=== PATIENT | female | born 1955 | race Caucasian/White ===

== ENCOUNTER 2018-07-28 11:45 | Inpatient (IN) | payer SELFPAY ==
[2018-07-28] MEDS ORDERED: IPRATROPIUM/ALBUTEROL 3 ML VIAL NEB ONE ×2 (12:08→16:04)
[2018-07-28] MEDS ORDERED: methylPREDNISolone SODIUM SUC 125 MG/2 ML VIAL IV ONE (12:09)
--- NOTE | 2018-07-28 12:14 | ED.PDOC ---
History of Present Illness - General Chief Complaint: Respiratory Problem Stated Complaint: shortness of breath Time Seen by Provider: 07/28/18 11:58 Source: patient Exam Limitations: no limitations - History of Present Illness Initial Comments: Patient presents with a fever and dyspnea for three days. She said she measured her temperature at home at 102 yesterday. The dyspnea has been getting progressively worse. She has mild intermittent asthma diagnosed three years ago. She normally uses her MDI less than once per week but has been using it "a lot" in the past three days. She also has a cough productive of green sputum. She has chest pain only when coughing that is generalized and burning. She smokes 1 ppd for 47 years. ( 47 pack year hx). No other complaints. She denies ever having been hospitalized for asthma. She was at the clinic today and noticed to have a fever and hypoxia from 85-88% so she was sent here. Timing/Duration: other - 3 days Severity: moderate Improving Factors: nothing Worsening Factors: nothing Associated Symptoms: other - see HPI Allergies/Adverse Reactions: Allergies Penicillins Allergy (Verified 07/28/18 11:53) Home Medications: Ambulatory Orders Albuterol Sulfate Nebs [Proventil Nebs] 2.5 mg INH QID PRN 07/28/18 Chlorthalidone 25 mg PO DAILY 07/28/18 Fluticasone Furoate-Vilanterol [Breo Ellipta 200-25 Mcg/INH] 1 inh IN DAILY 07/28/18 Fluticasone Furoate-Vilanterol [Breo Ellipta 200-25 Mcg/INH] 1 puff INH DAILY 07/28/18 Lisinopril 40 mg PO DAILY 07/28/18 Review of Systems - Review of Systems Constitutional: States: see HPI EENTM: States: no symptoms reported Respiratory: States: see HPI Cardiology: States: no symptoms reported Gastrointestinal/Abdominal: States: no symptoms reported Genitourinary: States: no symptoms reported Musculoskeletal: States: no symptoms reported Skin: States: no symptoms reported Neurological: States: no symptoms reported Endocrine: States: no symptoms reported Hematologic/Lymphatic: States: no symptoms reported Past Medical History (General) - Patient Medical History Hx Asthma: Yes Hx of COPD: No Hx Cardiac Disorders: No Hx Congestive Heart Failure: No Hx Hypertension: Yes Surgical History: other - Vaccination History Hx Influenza Vaccination: No Hx Pneumococcal Vaccination: No - Social History Hx Tobacco Use: Yes Family Medical History - Family History Mother Hx Cardiac Disease: Yes Physical Exam - Physical Exam General Appearance: Alert Eye Exam: bilateral normal Ears, Nose, Throat: normal ENT inspection Neck: non-tender, full range of motion, supple Respiratory: wheezing - diffuse expiratory wheezing, crackles in righ lung pool Cardiovascular/Chest: normal peripheral pulses, regular rate, rhythm, no edema Gastrointestinal/Abdominal: normal bowel sounds, non tender, soft Back Exam: normal inspection, no CVA tenderness Extremity: normal range of motion, non-tender, normal inspection Neurologic: no motor/sensory deficits, alert, normal mood/affect, oriented x 3 Skin Exam: normal color Lymphatic: no adenopathy Progress - Progress Progress: 07/28/18 16:14 Laboratory Tests 07/28/18 07/28/18 07/28/18 12:06 12:06 12:07 WBC 10.6 RBC 4.19 L Hgb 13.6 Hct 39.7 MCV 94.8 MCH 32.4 H MCHC 34.4 RDW 15.8 H Plt Count 210 MPV 8.5 Absolute Neuts (auto) 8.50 H Absolute Lymphs (auto) 1.40 Absolute Monos (auto) 0.60 Absolute Eos (auto) 0.00 Absolute Basos (auto) 0.10 Neutrophils % 80.4 H Lymphocytes % 13.1 L Monocytes % 5.3 Eosinophils % 0.4 L Basophils % 0.8 PT INR PTT (SP) pCO2 pO2 HCO3 ABG pH ABG O2 Saturation ABG Base Excess ABG Deoxyhemoglobin Oxyhemoglobin % Carboxyhemoglobin % Methemoglobin % Sat Calc Total Hemoglobin Sodium 130 L Potassium 3.5 L Chloride 94 L Carbon Dioxide 23 Anion Gap 16.5 BUN 31 H Creatinine 2.31 H BUN/Creatinine Ratio 13.4 Random Glucose 96 Serum Osmolality 267.2 L Lactic Acid Calcium 8.3 L Magnesium 2.0 Total Bilirubin 0.8 AST 132 H ALT 103 H Alkaline Phosphatase 72 Creatine Kinase 3185 H* CK-MB (CK-2) 17.6 H* CK-MB (CK-2) % 0.55 Troponin I 0.06 H B-Natriuretic Peptide 59.1 Serum Total Protein 7.7 Albumin 3.6 Globulin 4.1 H Albumin/Globulin Ratio 0.9 L Group A Strep Rapid 07/28/18 07/28/18 07/28/18 12:07 12:45 12:55 WBC RBC Hgb Hct MCV MCH MCHC RDW Plt Count MPV Absolute Neuts (auto) Absolute Lymphs (auto) Absolute Monos (auto) Absolute Eos (auto) Absolute Basos (auto) Neutrophils % Lymphocytes % Monocytes % Eosinophils % Basophils % PT 11.0 H INR 1.10 PTT (SP) 37.3 H pCO2 pO2 HCO3 ABG pH ABG O2 Saturation ABG Base Excess ABG Deoxyhemoglobin Oxyhemoglobin % Carboxyhemoglobin % Methemoglobin % Sat Calc Total Hemoglobin Sodium Potassium Chloride Carbon Dioxide Anion Gap BUN Creatinine BUN/Creatinine Ratio Random Glucose Serum Osmolality Lactic Acid 0.9 Calcium Magnesium Total Bilirubin AST ALT Alkaline Phosphatase Creatine Kinase CK-MB (CK-2) CK-MB (CK-2) % Troponin I B-Natriuretic Peptide Serum Total Protein Albumin Globulin Albumin/Globulin Ratio Group A Strep Rapid Negative 07/28/18 07/28/18 14:53 15:34 WBC RBC Hgb Hct MCV MCH MCHC RDW Plt Count MPV Absolute Neuts (auto) Absolute Lymphs (auto) Absolute Monos (auto) Absolute Eos (auto) Absolute Basos (auto) Neutrophils % Lymphocytes % Monocytes % Eosinophils % Basophils % PT INR PTT (SP) pCO2 40 pO2 60 L HCO3 21.4 ABG pH 7.340 L ABG O2 Saturation 91.2 L ABG Base Excess -3.5 ABG Deoxyhemoglobin 8.6 H Oxyhemoglobin % 89.2 L Carboxyhemoglobin % 0.8 Methemoglobin % Sat 1.3 Calc Total Hemoglobin 12.7 Sodium Potassium Chloride Carbon Dioxide Anion Gap BUN Creatinine BUN/Creatinine Ratio Random Glucose Serum Osmolality Lactic Acid Calcium Magnesium Total Bilirubin AST ALT Alkaline Phosphatase Creatine Kinase CK-MB (CK-2) CK-MB (CK-2) % Troponin I 0.05 B-Natriuretic Peptide Serum Total Protein Albumin Globulin Albumin/Globulin Ratio Group A Strep Rapid Duonebs x two. Solumedrol 125 mg IV x one. EKG showed NSR with no ST changes nor T wave inversions. No LBBB. Initial troponin 0.06. Follo up troponin 3 hours later was 0.05. CXR showed probably bronchitis. Attempted to wean oxygen but the patient went down to 82% on room air. Was admitted for asthma exacerbation, lower respiratory infection, and hypoxia. Received azithromycin 500 mg IV x one in the E.D. The plan was discussed with the patient who voiced understanding with the plan and agreement with inpatient admission. 07/28/18 16:18 07/28/18 16:19 Departure - Departure Clinical Impression: Asthma with exacerbation, Lower respiratory infection, Hypoxia Disposition: Discharge to Home or Self Care Condition: Fair Departure Forms: ED Discharge - Pt. Copy, Patient Portal Self Enrollment Diet: other - as per hospitalist Activity: increase activity as tolerated Referrals: Shemar Gaviria MD [Primary Care Provider] - 1-2 Weeks Home Medications: Ambulatory Orders Albuterol Sulfate Nebs [Proventil Nebs] 2.5 mg INH QID PRN 07/28/18 Chlorthalidone 25 mg PO DAILY 07/28/18 Fluticasone Furoate-Vilanterol [Breo Ellipta 200-25 Mcg/INH] 1 inh IN DAILY 07/28/18 Fluticasone Furoate-Vilanterol [Breo Ellipta 200-25 Mcg/INH] 1 puff INH DAILY 07/28/18 Lisinopril 40 mg PO DAILY 07/28/18
--- NOTE | 2018-07-28 12:38 | RAD ---
EXAM DESCRIPTION: Chest x-ray,2 Views CLINICAL HISTORY: dyspnea, fever, hx of asthma COMPARISON: None FINDINGS: Cardiac silhouette is within normal limits. There is atherosclerosis There is no focal parenchymal or pleural disease. There is no acute osseous process visualized. Tubular opacities at the lower lungs could be secondary to bronchial wall thickening/bronchitis changes of unknown age. IMPRESSION: Tubular opacities at the lower lungs could be secondary to bronchial wall thickening/bronchitis changes of unknown age. Electronically signed by: Moose Yeager MD 07/28/2018 12:[address] [facility]
[2018-07-28] MEDS ORDERED: SODIUM CHLORIDE 0.9% 1000ML 1,000 ML IVS PRN (13:50)
[2018-07-28] MEDS ORDERED: AZITHROMYCIN IV 500 MG in SODIUM CHLORIDE 0.9% 250ML 250 ML IVPB ONE (13:57)
[2018-07-28] MEDS ORDERED: SODIUM CHLORIDE 0.9% 250ML 250 ML ONE (14:01)
[2018-07-28] MEDS ORDERED: AZITHROMYCIN IV 500 MG VIAL IVPB ONE (14:01)
--- NOTE | 2018-07-28 16:42 | HP ---
SUPERVISING PHYSICIAN: Harman Garcia M.D. CHIEF COMPLAINT: Shortness of breath. HISTORY OF PRESENT ILLNESS: This is a 63 year-old female who was being seen at [facility] Urgent Care by MELVIN Mcdaniel. She said that she was diagnosed with asthma several years ago and she did complain of an upper respiratory infection. She was sent to the Emergency Room due to her O2 sats being 85% on room air. They put her on oxygen and she came up to 90%. She was sent to the Emergency Room. Her initial vital signs showed temperature 97.7, heart rate 85, blood pressure 95/59, respiratory rate 24, O2 sat was 88% on room air. They put her on oxygen and she came up to 91%. Several times her heart rate actually went up into the 90s and she was given several breathing treatments as well as some IV steroids. Lab was done and her WBCs were 10.8 but she did have a left shift on her differential. Hemoglobin 13.6, hematocrit 39.7. PT was 11, PTT was 37.3. Chemistries showed sodium of 130 with potassium 3.5, chloride 94, carbon dioxide 23, BUN 31, creatinine 2.31. Serum osmolality was 267.2 with AST of 132 and ALT of 103. Creatinine kinase was 3,185 with CK-MB 17.6. Troponin initially was 0.06. A repeat troponin after fluids was 0.05. Group A Strep swab was negative. Blood gas showed pCO2 of 40 and pO2 of 60 with pH of 7.34 and O2 sat of 91.2%. Chest x-ray showed tubular opacities in the lower lungs to be secondary to bronchial wall thickening and bronchitis of unknown age. Vital signs stabilized out except for her oxygen saturations. They attempted to discontinue her oxygen and every time they did that her sats dropped into the mid to upper 80s. Due to her elevated creatinine kinase as well as her elevated kidney function and her hypoxia, I was called for hospital admission. PAST MEDICAL HISTORY: 1. Anxiety. 2. Hypertension. 3. Moderate asthma. 4. Osteoarthritis. PAST SURGICAL HISTORY: 1. Left knee surgery. 2. sections times 3. 3. Open reduction and internal fixation of the left femur. 4. Right hip replacement. OUTPATIENT MEDICATIONS: 1. Albuterol inhaler. 2. Breo ellipta. 3. Albuterol nebulizer solution. 4. Chlorthalidone. 5. Lisinopril. ALLERGIES: PENICILLIN. FAMILY HISTORY: Positive for diabetes and myocardial infarction. SOCIAL HISTORY: She lives in [place]. She is . She has 3 children. She currently smokes approximately 1 pack of cigarettes daily. She drinks alcohol infrequently and denies any illicit drug use. REVIEW OF SYSTEMS: GENERAL: Positive for subjective fever, malaise. Negative for weight changes. HEENT: Positive for sinus symptoms and nasal congestion. Negative for ear pain, vision changes or sore throat. RESPIRATORY: Positive for coughing, wheezing and shortness of breath. CARDIAC: Negative for chest pain, palpitations or tachycardia. GASTROINTESTINAL: Positive for nausea but negative for vomiting, diarrhea or constipation. GENITOURINARY: Negative for hematuria, dysuria or polyuria. SKIN: Negative for lesions or rashes. NEUROLOGIC: Negative for dizziness, headache or seizures. PHYSICAL EXAMINATION: VITAL SIGNS: Temperature 97.8, heart rate 82, blood pressure 134/79, respiratory rate 20, O2 sat is 92% on 2 liters nasal cannula. GENERAL: This is a 63 year-old female patient who is sitting up in her hospital bed. She is in moderate respiratory distress. HEENT: Normocephalic and atraumatic. Pupils are equal and reactive. Oropharynx is clear. NECK: Supple without mass. RESPIRATORY: Diminished at the bases with scattered rhonchi throughout all pool as well as expiratory wheezing noted through all pool. The patient is tachypneic and she can only respond in 2 to 3 word phrases due to her extreme shortness of breath. CHEST: There is equal rise and fall of the chest with inspiration and expiration. CARDIOVASCULAR: Regular rate and rhythm. GASTROINTESTINAL: Abdomen is soft, nondistended, non-tender. Bowel sounds are positive. EXTREMITIES: No clubbing, cyanosis or edema. NEUROLOGIC: She is awake, alert and oriented times three. Cranial nerves II- XII are grossly intact. SKIN: Warm and dry. LABORATORY: Labs and films are as per the History of Present Illness. ASSESSMENT: 1. Systemic inflammatory response syndrome secondary to bronchitis with a heart rate of 94, respiratory rate 24 and O2 saturation of 88% with an inability to wean off oxygen. 2. Moderate asthma exacerbation with hypoxia. Her pO2 on ABGs was 60. She is a chronic smoker. 3. Acute kidney injury with unknown creatinine level and no known history of any renal problems. Her creatinine is 2.31. 4. Mild electrolyte imbalance, mainly hyponatremia, hypokalemia, hypochloridemia most likely secondary to #1. 5. Tobacco abuse. 6. Elevated creatinine kinase of 3,185. 7. Hypertension. PLAN: We will admit the patient to the hospital. She will be continued on azithromycin and I have added Rocephin. She will also receive a taper of IV steroids. I have also done extensive asthma teaching. She will have scheduled and p.r.n. nebulizer. We have also discussed tobacco cessation. I will give her fluids overnight. Tomorrow I may need to change her IV fluids to include some Dextrose if her creatinine does not improve. I have restarted her home medications. She will be on a measurer machine. I have repeated her labs in the morning. Will continue to monitor closely and follow as needed. #[id number] [facility]
[2018-07-28] MEDS ORDERED: ACETAMINOPHEN 325 MG TAB PO PRN (17:17)
[2018-07-28] MEDS ORDERED: ALBUTEROL SULFATE 2.5 MG/3 ML VIAL NEB PRN (17:17)
[2018-07-28] MEDS ORDERED: KCL 20 MEQ/NS 1,000 ML IVS ONE (17:21)
[2018-07-28] MEDS: IV SET AND CAP CHANGE INJ INJ SCH (17:40)
[2018-07-28] MEDS ORDERED: IPRATROPIUM/ALBUTEROL 3 ML VIAL INH SCH (20:00)
[2018-07-28] MEDS ORDERED: MORPHINE SULFATE INJ 10 MG/ML VIAL IV PRN (20:01)
[2018-07-28] MEDS ORDERED: traMADol HCL 50 MG TAB PO PRN (20:20)
[2018-07-28] MEDS: ENOXAPARIN SODIUM 40 MG/0.4 ML SYG SUBCU SCH (20:31)
[2018-07-28] MEDS: BENZONATATE PERLES 100 MG CAP PO PRN (20:31)
[2018-07-28] MEDS ORDERED: SODIUM CHL 0.9% 50ML MIN-BAG+ 50 ML IVPB ONE (20:32)
[2018-07-28] MEDS ORDERED: cefTRIAXone SODIUM 1 GM VIAL ONE (20:32)
[2018-07-28] MEDS: cefTRIAXone SODIUM 1 GM in SODIUM CHL 0.9% 50ML MIN-BAG+ 50 ML IVPB SCH (20:33)
[2018-07-28] MEDS: methylPREDNISolone SODIUM SUC 125 MG/2 ML VIAL IV SCH (22:26)
[2018-07-28] MEDS: TEMAZEPAM 15 MG CAP PO PRN (22:32)
[2018-07-29] MEDS ORDERED: ONDANSETRON INJ 4 MG/2 ML VIAL IV PRN (06:19)
[2018-07-29] MEDS: methylPREDNISolone SODIUM SUC 125 MG/2 ML VIAL IV SCH (06:25)
[2018-07-29] MEDS: PANTOPRAZOLE SODIUM IV 40 MG VIAL IV SCH (06:28)
[2018-07-29] MEDS ORDERED: LISINOPRIL 10 MG TAB ONE (06:48)
[2018-07-29] MEDS: IPRATROPIUM/ALBUTEROL 3 ML VIAL NEB SCH ×4 (07:20→22:35)
[2018-07-29] MEDS: CHLORTHALIDONE 25 MG TAB PO SCH (08:02)
[2018-07-29] MEDS: LISINOPRIL 10 MG TAB PO SCH (08:02)
[2018-07-29] MEDS: NON-FORMULARY MEDICATION 1 EA MIS (Fluticasone Furoate-Vilanterol [Breo Ellipta 200-25 Mcg INH SCH (08:42)
[2018-07-29] MEDS ORDERED: PROMETHAZINE HCL INJ 25 MG in SODIUM CHLORIDE 0.9% 50ML 50 ML IVPB PRN (08:50)
[2018-07-29] MEDS ORDERED: SODIUM CHLORIDE 0.9% 50ML 50 ML ONE (09:07)
[2018-07-29] MEDS ORDERED: PROMETHAZINE HCL INJ 25 MG/ML VIAL ONE (09:07)
[2018-07-29] MEDS ORDERED: SODIUM BICARBONATE VIAL 75 MEQ in DEXTROSE 5% 1000ML 1,000 ML IVS ONE (10:29)
[2018-07-29] MEDS ORDERED: SODIUM BICARBONATE VIAL 50 MEQ/50 ML VIAL ONE (10:34)
[2018-07-29] MEDS ORDERED: DEXTROSE 5% 1000ML 1,000 ML IVS ONE (10:34)
[2018-07-29] MEDS ORDERED: SODIUM CHLORIDE 0.9% 250ML 250 ML ONE (11:46)
[2018-07-29] MEDS ORDERED: AZITHROMYCIN IV 500 MG VIAL IVPB ONE (11:46)
[2018-07-29] MEDS: methylPREDNISolone SODIUM SUC 40 MG/ML VIAL IV SCH ×2 (11:50→17:07)
[2018-07-29] MEDS: AZITHROMYCIN IV 500 MG in SODIUM CHLORIDE 0.9% 250ML 250 ML IVPB SCH (11:50)
--- NOTE | 2018-07-29 14:39 | PN ---
DATE: 07/29/18 SUPERVISING PHYSICIAN: Harman Garcia M.D. SUBJECTIVE: The patient is sitting on the side of the bed. She continues to complain of shortness of breath, wheezing and coughing. She has also had some nausea and vomiting early this morning. That has somewhat subsided. She still continues to feel very weak. She denies any chest pain, diarrhea or constipation. OBJECTIVE: VITAL SIGNS: Temperature 97.9, heart rate 65, blood pressure 124/72, respiratory rate 20, O2 sat 93% on 2.5 liters nasal cannula. She has been as low at 88%. RESPIRATORY: Expiratory wheezing in all lung pool. She is diminished at the bases. There are a few scattered rhonchi. She is tachypneic. She has to speak in 2 to 3 word phrases due to her dyspnea. CARDIAC: Regular rate and rhythm. ABDOMEN: Soft, nondistended. Diffusely but mildly tender. Bowel sounds are positive. NEUROLOGIC: She is awake, alert and oriented times three. LABORATORY: WBC 10 with left shift on differential. Hemoglobin 12.8, hematocrit 38.1. Sodium 130, potassium 4.3, carbon dioxide 99, BUN 25, creatinine has improved to 1.1 with glucose 159, serum osmolality 268.6, calcium 7.6. AST is slightly improved to 107, ALT improved to 82. Creatinine kinase 3,290. Throat culture is pending. All other labs and films have been reviewed via the EMR. ASSESSMENT: 1. Systemic inflammatory response syndrome secondary to bronchitis with a heart rate of 94, respiratory rate 24 and O2 saturation of 88% with an inability to wean off oxygen. 2. Moderate asthma exacerbation with hypoxia. Her pO2 on ABGs was 60. She is a chronic smoker. 3. Acute kidney injury with unknown baseline creatinine level and no known history of any renal problems. Her elevated creatinine may be due to her elevated creatinine kinase. Her creatinine on admission was 2.31, today it is 1.1. 4. Mild electrolyte imbalance, mainly hyponatremia, hypokalemia, hypochloridemia most likely secondary to #1. Her electrolytes have mostly normalized. 5. Tobacco abuse. 6. Elevated creatinine kinase of 3,185. 7. Hypertension. PLAN: We will continue present supportive care. Because her creatinine kinase is elevated I will give her some D5W with 1.5 amps of bicarb. I have titrated her IV steroids. We have again discussed at length about smoking cessation and we have encouraged her to do so. I have also ordered some Phenergan for her nausea and vomiting. Repeated her labs in the morning. We will continue to monitor closely and follow as needed. Dr. Garcia is the collaborating physician available for consultation. #[id number] [facility]
[2018-07-29] MEDS ORDERED: cefTRIAXone SODIUM 1 GM VIAL ONE (19:13)
[2018-07-29] MEDS ORDERED: SODIUM CHL 0.9% 50ML MIN-BAG+ 50 ML IVPB ONE (19:13)
[2018-07-29] MEDS: cefTRIAXone SODIUM 1 GM in SODIUM CHL 0.9% 50ML MIN-BAG+ 50 ML IVPB SCH (20:56)
[2018-07-29] MEDS: ENOXAPARIN SODIUM 40 MG/0.4 ML SYG SUBCU SCH (20:58)
[2018-07-30] MEDS: TEMAZEPAM 15 MG CAP PO PRN (00:05)
[2018-07-30] MEDS: ALPRAZolam 0.25 MG TAB PO PRN (00:05)
[2018-07-30] MEDS: methylPREDNISolone SODIUM SUC 40 MG/ML VIAL IV SCH ×5 (00:09→23:44)
[2018-07-30] MEDS: BENZONATATE PERLES 100 MG CAP PO PRN (01:46)
[2018-07-30] MEDS: PANTOPRAZOLE SODIUM IV 40 MG VIAL IV SCH (06:01)
[2018-07-30] MEDS: LISINOPRIL 10 MG TAB PO SCH (08:04)
[2018-07-30] MEDS: CHLORTHALIDONE 25 MG TAB PO SCH (08:05)
[2018-07-30] MEDS: NON-FORMULARY MEDICATION 1 EA MIS (Fluticasone Furoate-Vilanterol [Breo Ellipta 200-25 Mcg INH SCH (10:30)
[2018-07-30] MEDS ORDERED: SODIUM CHLORIDE 0.9% 250ML 250 ML ONE (11:15)
[2018-07-30] MEDS: IPRATROPIUM/ALBUTEROL 3 ML VIAL NEB SCH ×4 (11:15→20:09)
[2018-07-30] MEDS ORDERED: AZITHROMYCIN IV 500 MG VIAL IVPB ONE ×2 (11:15→11:19)
[2018-07-30] MEDS: AZITHROMYCIN IV 500 MG in SODIUM CHLORIDE 0.9% 250ML 250 ML IVPB SCH (11:24)
--- NOTE | 2018-07-30 13:09 | PN ---
COLLABORATING PHYSICIAN: Shemar Gaviria MD DATE: 07/30/18 SUBJECTIVE: The patient states she feels about the same as she did yesterday. She is still getting exertionally short of breath. She is also wearing oxygen and states she does not use this at home. She has been able to ambulate without any difficulties. OBJECTIVE: VITAL SIGNS: Blood pressure 121/68. Heart rate 76. Respiratory rate 16. Temperature 97.5. Oxygen saturation 92%. GENERAL: Ms. Moss is a 63-year-old female in some mild respiratory distress even at rest. NEUROLOGIC: Alert and oriented. LUNGS: Bilateral rhonchi with no active wheezing. CARDIOVASCULAR: Regular rate and rhythm. Normal S1, S2. ABDOMEN: Obese, soft. Positive bowel sounds. No tenderness to palpation. EXTREMITIES: Pulses 2+. Capillary refill is less than 2 seconds. LABORATORY: White count 11.2, hemoglobin 11.9, hematocrit 35.4, platelet count 216. Chemistry with sodium 128, potassium 4.3, chloride 92, CO2 27, BUN 23, creatinine 0.77, glucose 128, calcium 7.7. CK is down to 1997. ASSESSMENT: 1. Systemic inflammatory response syndrome secondary to acute bronchitis. 2. Asthma exacerbation. 3. Acute kidney injury, improved. 4. Electrolyte imbalance. 5. Tobacco abuse. 6. Hypertension, controlled. PLAN: The patient is stepwise improving, however, she is still requiring oxygen. She is on 2.5 liters of oxygen right now, satting 92%. I am going to get an ambulation study on room air to evaluate where she is. Also, she is still on q.6h. Solu-Medrol. Given her continuous hypoxia, I would not change that at this time. Acute kidney injury is improved, so we will continue to monitor that. We will repeat her labs and hopefully reduce her steroids tomorrow morning. [facility][id number] [facility]
[2018-07-30] MEDS ORDERED: SODIUM CHL 0.9% 50ML MIN-BAG+ 50 ML IVPB ONE (19:29)
[2018-07-30] MEDS ORDERED: cefTRIAXone SODIUM 1 GM VIAL ONE (19:30)
[2018-07-30] MEDS: cefTRIAXone SODIUM 1 GM in SODIUM CHL 0.9% 50ML MIN-BAG+ 50 ML IVPB SCH (19:51)
[2018-07-30] MEDS: ENOXAPARIN SODIUM 40 MG/0.4 ML SYG SUBCU SCH (20:01)
[2018-07-31] MEDS: PANTOPRAZOLE SODIUM TAB 40 MG PO SCH (05:34)
[2018-07-31] MEDS: methylPREDNISolone SODIUM SUC 40 MG/ML VIAL IV SCH ×4 (05:34→23:55)
--- NOTE | 2018-07-31 07:05 | RAD ---
EXAM: Single view chest. INDICATION: Asthma. COMPARISON: Chest x-ray: 07/28/2018. FINDINGS: There are increased right basilar interstitial opacities. The heart size is stable. There is no pneumothorax or pleural effusion. The bones are unchanged. IMPRESSION: Increased right basilar interstitial opacities, which may represent atelectasis or pneumonia. Electronically signed by: Chris Titus MD 07/31/2018 7:04 AM [facility] Workstation: [id number]
[2018-07-31] MEDS: IPRATROPIUM/ALBUTEROL 3 ML VIAL NEB SCH ×4 (09:00→20:54)
[2018-07-31] MEDS: NON-FORMULARY MEDICATION 1 EA MIS (Fluticasone Furoate-Vilanterol [Breo Ellipta 200-25 Mcg INH SCH (09:00)
[2018-07-31] MEDS ORDERED: SODIUM CHLORIDE 0.9% 250ML 250 ML ONE (09:02)
[2018-07-31] MEDS ORDERED: AZITHROMYCIN IV 500 MG VIAL IVPB ONE (09:03)
[2018-07-31] MEDS: LISINOPRIL 10 MG TAB PO SCH (09:36)
[2018-07-31] MEDS: CHLORTHALIDONE 25 MG TAB PO SCH (09:36)
[2018-07-31] MEDS ORDERED: SODIUM CHLORIDE 0.9% 1000ML 1,000 ML IVS PRN (10:03)
[2018-07-31] MEDS: guaiFENesin ER TAB 600 MG TAB PO SCH ×2 (11:21→20:25)
--- NOTE | 2018-07-31 12:02 | PN ---
SUPERVISING PHYSICIAN: Shemar Gaviria MD DATE: 07/31/18 SUBJECTIVE: The patient states she feels a little bit better today than she did yesterday. She is able to walk the abel once and has been walking around the room, but still has some dyspnea. She states she is coughing, but nothing is really coming up. OBJECTIVE: VITAL SIGNS: Blood pressure 147/65. Heart rate 68. Respiratory rate 18. Temperature 97.9. Oxygen saturation 93%. GENERAL: Ms. Moss is a 63-year-old female who at rest still looks like she is in a little bit of mild respiratory distress. NEUROLOGIC: Alert and oriented. LUNGS: Bilateral rhonchi. There is no wheezing. CARDIOVASCULAR: Regular rate and rhythm. Normal S1, S2. ABDOMEN: Soft. Positive bowel sounds. GENITOURINARY: Deferred. EXTREMITIES: Lower extremities with no edema. RADIOLOGY: Chest x-ray shows increased right basilar interstitial opacity. LABORATORY: White count 11.2, hemoglobin 12.7, hematocrit 38.0, platelet count 236. Chemistry with sodium 127, potassium 4.3, chloride 90, CO2 27. Glucose 135, BUN 22, creatinine 0.77, calcium 8.0. ASSESSMENT: 1. Systemic inflammatory response syndrome secondary to acute bronchitis and possible development of right lower lobe pneumonia. 2. Asthma exacerbation. 3. Acute kidney injury, improved. 4. Electrolyte imbalance. 5. Tobacco abuse. 6. Hypertension. PLAN: The patient still has slow improvement. I am going to back off of her Solu-Medrol to q.12h. We will continue current antibiotics. I am going to add Mucinex to her regimen as well. She does not appear to be taking really deep breaths. I am concerned that the right lower lobe infiltrate is more likely an atelectasis. There has been no significant change in white count. I will recheck her labs and chest x-ray tomorrow and also start EzPAP and CPT on her as well. #[id number] [facility]
[2018-07-31] MEDS: AZITHROMYCIN IV 500 MG in SODIUM CHLORIDE 0.9% 250ML 250 ML IVPB SCH (13:27)
[2018-07-31] MEDS: IV SET AND CAP CHANGE INJ INJ SCH (17:54)
[2018-07-31] MEDS ORDERED: cefTRIAXone SODIUM 1 GM VIAL ONE (19:43)
[2018-07-31] MEDS ORDERED: SODIUM CHL 0.9% 50ML MIN-BAG+ 50 ML IVPB ONE (19:43)
[2018-07-31] MEDS: cefTRIAXone SODIUM 1 GM in SODIUM CHL 0.9% 50ML MIN-BAG+ 50 ML IVPB SCH (20:25)
[2018-07-31] MEDS: ENOXAPARIN SODIUM 40 MG/0.4 ML SYG SUBCU SCH (20:25)
[2018-07-31] MEDS: SODIUM CHLORIDE 0.9% (FLUSH) 10 ML SYG IV PRN ×2 (20:27→23:56)
[2018-07-31] MEDS: BENZONATATE PERLES 100 MG CAP PO PRN (22:07)
[2018-07-31] MEDS: ALPRAZolam 0.25 MG TAB PO PRN (23:58)
[2018-08-01] MEDS: methylPREDNISolone SODIUM SUC 40 MG/ML VIAL IV SCH ×4 (05:55→20:42)
[2018-08-01] MEDS: PANTOPRAZOLE SODIUM TAB 40 MG PO SCH (05:56)
[2018-08-01] MEDS: SODIUM CHLORIDE 0.9% (FLUSH) 10 ML SYG IV PRN ×2 (05:58→20:41)
[2018-08-01] MEDS: LISINOPRIL 10 MG TAB PO SCH (08:31)
[2018-08-01] MEDS: CHLORTHALIDONE 25 MG TAB PO SCH (08:31)
[2018-08-01] MEDS: IPRATROPIUM/ALBUTEROL 3 ML VIAL NEB SCH ×4 (08:32→21:06)
[2018-08-01] MEDS: NON-FORMULARY MEDICATION 1 EA MIS (Fluticasone Furoate-Vilanterol [Breo Ellipta 200-25 Mcg INH SCH (08:32)
[2018-08-01] MEDS: guaiFENesin ER TAB 600 MG TAB PO SCH ×2 (08:36→20:42)
[2018-08-01] MEDS ORDERED: AZITHROMYCIN IV 500 MG VIAL IVPB ONE (12:27)
[2018-08-01] MEDS ORDERED: SODIUM CHLORIDE 0.9% 250ML 250 ML ONE (12:27)
[2018-08-01] MEDS ORDERED: SODIUM CHLORIDE 0.65% NASAL SPRAY 45 ML BTTL BNAS PRN (12:38)
[2018-08-01] MEDS: AZITHROMYCIN IV 500 MG in SODIUM CHLORIDE 0.9% 250ML 250 ML IVPB SCH (12:38)
--- NOTE | 2018-08-01 13:15 | PN ---
SUPERVISING PHYSICIAN: Shemar Gaviria MD DATE: 08/01/18 SUBJECTIVE: The patient is sitting up in her bed. She is eating her meal. The daughter is at the bedside. She feels much stronger today and has only had to wear her oxygen off and on. She has some shortness of breath with exertion, but it is improved. At this time, we are going to discontinue her oxygen and she is going to have some ambulation studies to see how well she does without it. She would prefer not to go home on oxygen. She also complains that her nose was very dry. Other than that, she denies chest pain, nausea, vomiting, diarrhea or constipation. OBJECTIVE: VITAL SIGNS: Temperature 97.7. Heart rate 76. Blood pressure 152/74. Respiratory rate 20. O2 saturation 93% on 2 liters nasal cannula. RESPIRATORY: Essentially clear to auscultation bilaterally, but somewhat diminished at the bases. She does get mildly tachypneic at times, but is much improved and she can actually speak in sentences now without getting shortness of breath. CARDIAC: Regular rate and rhythm. GASTROINTESTINAL: Abdomen is soft, nondistended, nontender. Bowel sounds are positive. NEUROLOGIC: Awake, alert and oriented times three. LABORATORY: WBCs have slightly improved to 11,100 with hemoglobin 13.7, hematocrit 40.5. There is no left shift on her differential. Sodium 129, potassium 4, chloride 90, carbon dioxide 26, BUN 20, creatinine 0.8, glucose 133, calcium 8.5, CPK 740. Sputum culture is still pending. All other labs and films have been reviewed via the EMR. ASSESSMENT: 1. Systemic inflammatory response syndrome secondary to acute bronchitis and possible development of right lower lobe pneumonia. 2. Asthma exacerbation. 3. Acute kidney injury, improved. 4. Electrolyte imbalance, mainly hyponatremia. 5. Tobacco abuse. 6. Hypertension. PLAN: We will continue present supportive care. We will continue to monitor for her sputum culture. I have ordered labs for in the morning including a CPK. I also placed her on fluid restrictions. I have decreased her Solu-Medrol to twice a day. Tomorrow, we will put her on p.o. prednisone. We spoke at length about smoking cessation and that we would try to go without oxygen today to see how she does overnight. Hopefully, she can bee discharged tomorrow with close followup with Dr. Gaviria. We will continue to monitor the patient closely and follow as needed. #[id number] [facility]
[2018-08-01] MEDS ORDERED: SODIUM CHL 0.9% 50ML MIN-BAG+ 50 ML IVPB ONE (20:03)
[2018-08-01] MEDS ORDERED: cefTRIAXone SODIUM 1 GM VIAL ONE (20:04)
[2018-08-01] MEDS: cefTRIAXone SODIUM 1 GM in SODIUM CHL 0.9% 50ML MIN-BAG+ 50 ML IVPB SCH (20:41)
[2018-08-01] MEDS: ENOXAPARIN SODIUM 40 MG/0.4 ML SYG SUBCU SCH (20:42)
[2018-08-02] MEDS: PANTOPRAZOLE SODIUM TAB 40 MG PO SCH (06:05)
[2018-08-02] MEDS: NON-FORMULARY MEDICATION 1 EA MIS (Fluticasone Furoate-Vilanterol [Breo Ellipta 200-25 Mcg INH SCH (07:10)
[2018-08-02] MEDS: IPRATROPIUM/ALBUTEROL 3 ML VIAL NEB SCH (07:10)
--- NOTE | 2018-08-02 07:45 | RAD ---
EXAM DESCRIPTION: Chest,2 Views CLINICAL HISTORY: pna COMPARISON: Previous study July 31, 2018 TECHNIQUE: PA/lateral FINDINGS: Heart is mildly enlarged with prominent central pulmonary vascularity. No large pleural effusion or evidence of pneumothorax. Wedge like atelectasis in the right lung base is seen with discoid atelectasis in the peripheral left mid lung and left lower lobe. Compared to the previous study, left lung is stable and right lower lobe appears improved. Lateral view shows intact sternum and T-spine. IMPRESSION: Mild interval improvement in the appearance of the chest. Electronically signed by: Juan Diego Wiley MD 08/02/2018 7:43 AM [employer]
[2018-08-02 07:56] VITALS: TEMP 97.9
[2018-08-02] MEDS: CHLORTHALIDONE 25 MG TAB PO SCH (08:25)
[2018-08-02] MEDS: guaiFENesin ER TAB 600 MG TAB PO SCH (08:25)
[2018-08-02] MEDS: LISINOPRIL 10 MG TAB PO SCH (08:25)
[2018-08-02] MEDS: methylPREDNISolone SODIUM SUC 40 MG/ML VIAL IV SCH (08:25)
[2018-08-02] MEDS ORDERED: predniSONE 20 MG TAB PO SCH ×2 (09:00→12:00)
[2018-08-02 10:37] VITALS: BP 104/61; O2SAT 94
[2018-08-02] MEDS ORDERED: NYSTATIN SUSPENSION 5 ML UD MT SCH (13:00)
--- NOTE | 2018-08-02 14:34 | DS ---
SUPERVISING PHYSICIAN: Shemar Gaviria MD DISCHARGE DIAGNOSIS: 1. Systemic inflammatory response syndrome secondary to acute bronchitis and possible development of right lower lobe pneumonia. 2. Asthma exacerbation. 3. Acute kidney injury, improved. 4. Electrolyte imbalance, mainly hyponatremia. 5. Tobacco abuse. 6. Hypertension. 7. Elevated CPK. 8. Elevated liver function tests. HISTORY OF PRESENT ILLNESS: This is a 63-year-old female patient who was seen at [facility] by MELVIN Mcdaniel. She had been diagnosed with asthma several years ago and came into the clinic complaining of of an upper respiratory infection. Initially, her oxygen saturation was 85% on room air. They put her on supplemental oxygen and she came up to 90%. Due to her hypoxia, she was sent to the Emergency Room. Her initial vital signs in the Emergency Room showed temperature 97.7, heart rate 85, blood pressure 95/59, respiratory rate 24, O2 sat was 88% on room air. After supplemental oxygen, she came up to 91%. Several times her heart rate went up into the 90s and she was given several breathing treatments as well as some IV steroids. Lab was done and her WBCs were 10.8, but she did have a left shift on her differential. Hemoglobin 13.6, hematocrit 39.7. PT was 11, PTT was 37.3. Chemistries showed sodium of 130 with potassium 3.5, chloride 94, carbon dioxide 23, BUN 31, creatinine 2.31. Serum osmolality was 267.2 with AST of 132 and ALT of 103. Creatinine kinase was 3,185 with CK-MB 17.6. Troponin initially was 0.06. A repeat troponin after fluids was 0.05. Group A Strep swab was negative. Blood gas showed pCO2 of 40 and pO2 of 60 with pH of 7.34 and O2 sat of 91.2%. Chest x-ray showed tubular opacities in the lower lungs to be secondary to bronchial wall thickening and bronchitis of unknown age. Vital signs stabilized except for her oxygen saturation. Every attempt at getting her to room air was ineffective and her oxygen saturations dropped to the mid-80s each time. Due to her elevated creatinine kinase as well as her elevated kidney function with hypoxia, she was admitted to the hospital. HOSPITAL COURSE: She was admitted and started on pneumonia protocol. She was given azithromycin and Rocephin. She also had a taper of IV steroids. She received extensive asthma teaching as well as smoking cessation. Her kidney function improved from creatinine of 2.31 on admission to 1 today. Her CK-MB was 3,290 on admission and today it is 382. AST was 91 on admission. Today, it is 185. ALT was 73 on admission and is 193 today. Her sputum culture was positive for E. coli and was pansensitive including ceftriaxone. She was transitioned to p.o. steroids. Again, we had a somewhat difficult time getting her off oxygen, but she has been off oxygen for 24 hours. Her vital signs today show temperature 97.9, heart rate 99, blood pressure 104/61, respiratory rate 18, O2 saturation 93% on room air. She will be discharged home today in stable condition. RADIOLOGY: X-ray report today shows minimal improvement in the appearance of the chest. DISCHARGE PLAN: The patient will be discharged home in stable condition. She is to resume her previous medications as well as her previous diet and increase activity as tolerated. She is to followup with her primary care physician, Dr. Gaviria, on 08/08/18 at 11:15 AM. It is recommended that the patient get a CBC, CMP and chest x-ray on arrival on Dr. Gaviria' office. In addition to her home medications, she is to have a p.o. prednisone taper as well as 5 additional days of cefdinir. She has completed 5 days of azithromycin. I have also given her some additional albuterol nebulizer treatment. We again discussed smoking cessation at length as well as doing some continued asthma education. She will most likely need a GI workup after discharge due to her elevated liver functions. She is to return to the hospital or followup with Dr. Gaviria' office for any problems or complications. DISCHARGE MEDICATIONS: 1. Lisinopril. 2. Albuterol sulfate nebulizers. 3. Brio Ellipta 200/25. 4. Chlorthalidone. 5. Albuterol inhaler. 6. Cefdinir. 7. Guaifenesin. 8. Prednisone taper. #[id number] [facility]
== END 2018-08-02 12:07 | disposition home or self-care (01) | DRG 202 ==
LOC: ER 11:45 → MS 16:41
PROVIDERS: ADMIT Nurse Practitioner Acute Care; ATTEND Nurse Practitioner Acute Care
DX: J20.9 Acute bronchitis, unspecified (principal); J18.9 Pneumonia, unspecified organism; J45.21 Mild intermittent asthma with (acute) exacerbation; N17.9 Acute kidney failure, unspecified; E87.1 Hypo-osmolality and hyponatremia; F41.9 Anxiety disorder, unspecified; I10 Essential (primary) hypertension; M19.90 Unspecified osteoarthritis, unspecified site; F17.210 Nicotine dependence, cigarettes, uncomplicated; E87.6 Hypokalemia; E87.8 Other disorders of electrolyte and fluid balance, not elsewhere classified; B96.20 Unspecified Escherichia coli [E. coli] as the cause of diseases classified elsewhere; R94.5 Abnormal results of liver function studies; Z88.0 Allergy status to penicillin